=== PATIENT | male | born 1950 | race Caucasian/White ===

== ENCOUNTER 2017-03-24 03:00 | Inpatient (IN) | payer OTHER, MEDICARE ==
[~2017-03-24] VITALS: Ht 177.8 cm; Wt 111.2 kg
--- NOTE | ~2017-03-24 | HP ---
PATIENT'S NAME: SULMA SANCHEZ [facility] AGE: 66 Y [address] ROOM: [place] [address] LOCATION: [facility] ADMIT DATE: 03/24/2017 History & Physical DISCHARGE DATE: FAMILY PHYSICIAN: PHYSICIAN, UNKNOWN ATTENDING PHYSICIAN: MISAEL KING DATE OF SERVICE: CHIEF COMPLAINT: Shortness of breath. HISTORY OF PRESENT ILLNESS: This is a 66-year-old male who says that for the last 2 weeks he has been having this exertional dyspnea on exertion, which progressed to at rest with minimal exertion. He says that usually he is a physically active individual and he denies any recent long distance travel. He says that last few days, he also has been feeling a little bit of numbness in the left hand, but he also has had this before and he attributes this to his cervical spine problem and this is chronic, this is not new. He has had surgery before for this cervical spine in the past and he is planning to have a followup with medical provider in the future. Because of the worsening shortness of breath, the patient went to outside facility for evaluation. At outside facility, the patient was found to have elevated troponin, EKG with sinus tachycardia, and the patient was also tachycardic and requiring high amount of oxygen requirement on nonrebreather, and the patient was referred here for further care. Initially, they called our on-call tail puller, Dr. Sena, who suspected the patient might have pulmonary embolism; therefore, IV heparin bolus followed by drip were given and the patient was sent over here for further care. The patient remained hemodynamically stable throughout the transportation and also on arrival. The patient denies any chest pain, fever or chills, or any other symptoms. REVIEW OF SYSTEMS: As mentioned in the history of present illness. All other systems were reviewed and were negative except those mentioned in history of present illness. PAST MEDICAL HISTORY: 1. Hypertension. 2. Obstructive sleep apnea, on home CPAP. 3. Anxiety. 4. Ankylosing spondylitis. 5. Temporal arteritis, on steroids. 6. Migraine. 7. Asthma. PATIENT'S NAME: SULMA SANCHEZ [facility] AGE: 66 Y [address] ROOM: [place] [address] LOCATION: [facility] ADMIT DATE: 03/24/2017 History & Physical DISCHARGE DATE: FAMILY PHYSICIAN: PHYSICIAN, UNKNOWN ATTENDING PHYSICIAN: MISAEL KING ALLERGIES: LISINOPRIL, ANAPHYLAXIS. HOME MEDICATIONS: Currently, has been reconciled. SOCIAL HISTORY: The patient has a remote history of cigarette smoking. He quit in 1970. He smoked briefly about 1-2 cigarettes per week for only a few years. He is a social alcohol drinker, but he denies any alcohol abuse or alcohol withdrawal. He denies any IV illegal drug use. PAST SURGICAL HISTORY: 1. Cervical diskectomy with fusion in the past. 2. Melanoma removal in the back. 3. Temporal artery biopsy several times in the past. 4. Left hip replacement. 5. Cataract surgery. FAMILY HISTORY: Father had COPD from heavy alcohol use and mother had a heart problem, but does not remember the cause. PHYSICAL EXAMINATION: VITAL SIGNS: At the time of evaluation, temperature 98, heart rate was 120, respiration was 20, saturation was 93% on nonrebreather face mask at 10 L, and blood pressure was 112/76. GENERAL APPEARANCE: Alert and oriented x3. Currently, in mild respiratory distress from tachypnea. HEENT: Pupils are equally round and reactive to light. Extraocular muscles intact. Anicteric sclerae. Nasal turbinates normal bilaterally. Moist oral mucosa. NECK: No JVD. CARDIOVASCULAR: Tachycardia. No murmur, no rubs, no gallops. Regular rhythm. RESPIRATORY: Clear to auscultation. No rales, no rhonchi, no wheezing, no crackles. ABDOMEN: Obese, soft, nontender, nondistended, normal bowel sounds. No mass. EXTREMITIES: No edema in upper or lower extremities. NEUROLOGICAL: Grossly nonfocal. SKIN: No ulcer. LABORATORY DATA: Currently, our labs are pending. The ones already came back showed troponin PATIENT'S NAME: SULMA SANCHEZ [facility] AGE: 66 Y [address] ROOM: [id number] [place], [place] [address] LOCATION: [facility] ADMIT DATE: 03/24/2017 History & Physical DISCHARGE DATE: FAMILY PHYSICIAN: PHYSICIAN, UNKNOWN ATTENDING PHYSICIAN: MISAEL KING 1.08, proBNP 3340, CPK 110. INR 1.07, PTT 34, TSH 0.857, CK-MB 7.5. D-dimer 19.26. IMAGING STUDIES: EKG here performed on our hospital on admission showed a sinus rhythm. Regular heart rate with a finding of S1, Q3, T3. Chest x-ray was done from outside facility. Verbal report given to us was no acute finding. ASSESSMENT AND PLAN: 1. Regarding his acute hypoxemic respiratory failure: Probably, the patient has a pulmonary embolism. Given that he has a finding of MARISOL from an outside facility, CT angiogram of the chest cannot be done. I will consult Cardiology right now. Dr. Sena is seeing the patient right now. Further plan per Cardiology evaluation. We will continue IV heparin drip for now. Eventually, the patient will require ventilation and perfusion scanning. I will give him IV fluids for hydration right now. We will also get an echo stat looking for the right ventricular strain. Defer further care and evaluation per Cardiology. We will get an echo stat right now. Dr. Sena is seeing the patient right now with salvage engineering technician in the room. Further plan per Cardiology. We will also be getting a venous duplex ultrasound of the bilateral lower extremity looking for DVT. We will also do blood work including proBNP. 2. Regarding his acute kidney injury: We will check our kidney function here. Give him IV fluids for hydration. Put a O[place]no catheter for strict in's and out's. Get a urinalysis. 3. Regarding his transaminitis: His liver function testing from outside facility were high. I will check a complete abdominal ultrasound looking for liver pathology. N.p.o. for now. 4. Regarding his history of obstructive sleep apnea: The patient did not bring the CPAP from home. We will do oxygen on nonrebreather right now for the possibility of PE. Keep the saturation more than 90%. 5. Regarding his hypertension: Hold blood pressure medication for now to prevent hypotension in the setting of a possible pulmonary embolism. 6. Regarding his asthma: Currently, not in flare. We will check an RT for RSS. 7. Consider repeating a chest x-ray. If he has any abdominal or pulmonary sounds. 8. Further plan will depend on clinical course. Currently, Dr. Sena is seeing the patient, and further plan per Cardiology. Time spent in care on the day of admission is 50 minutes where 20 minutes was spent on chart review and the remainder of time was spent on interview and physical examination, also on counseling. The counseling includes going over PATIENT'S NAME: SULMA SANCHEZ [facility] AGE: 66 Y [address] ROOM: [place] [address] LOCATION: [facility] ADMIT DATE: 03/24/2017 History & Physical DISCHARGE DATE: FAMILY PHYSICIAN: PHYSICIAN, UNKNOWN ATTENDING PHYSICIAN: MISAEL KING the plan of care with the patient in detail and also answering all the questions and concerns the patient had to his satisfaction. Further plan will depend on clinical course. Further plan will also depend on Cardiology. MD MARQUEZ RAIN/amna /[id number] D: T: HISTORY & PHYSICAL
--- NOTE | ~2017-03-24 | CATH ---
Demographics Patient Name LAURA Coburn Gender Male Date of 1950 Age 66 year(s) Patient Number [id number] Date of Study 03/24/2017 Visit Number [id number] Room Number G[address] [place] [id number] Ht 177.8 cm Wt 112.3 kg Referring Geeta Patrick MD Primary Physician Physician Performing Efstratiou Secondary Physician Physician Joseph Ventura MD Diagnostic Efstratiou Assisting Physician Physician Joseph Ventura MD Interventional Efstratiou Physician Air Brush Decorator Physician Joseph Ventura MD Findings and Conclusions Procedure Description The patient was brought to the diagnostic cardiac catheterization-EP laboratory in the fasting, non-sedated state. Informed consent was obtained in the written and verbal form after the risks and benefits were explained. The patient had no further questions and agreed to proceed. The planned puncture-incision site(s) were shaved and prepped with ChloraPrep and draped in the usual sterile manner. Supplemental oxygen was delivered by a registered nurse under physician guidance. Surface ECG rhythm, blood pressure measurement, and pulse oximetry were monitored throughout the procedure. Venous access. The access site was infiltrated with lidocaine. The vessel was entered with the Seldinger technique. A sheath was advanced into the vessel and used for catheter placement. Right heart catheterization. A catheter was successfully advanced to the right atrium, right ventricle, pulmonary artery, and pulmonary artery wedge position under fluoroscopic guidance. Resting hemodynamics were obtained. The catheter was positioned in the pulmonary artery for TPA infusion. Venous hemostasis was achieved. The patient was transferred to a regular nursing floor via cart accompanied by a nurse. The patient left the laboratory in stable condition. Peripheral Procedure Description Peripheral infusion catheter placed in pulmonary artery. RIJ accessed under US guidance iPA 20mg to be infused over 15hrs for submassive PE with acute cor pulmonale Diagnostic Cath Status: Urgent Interventional Cath Status: Urgent Procedure Procedure Type Diagnostic procedure:Angiography:, RHC Peripheral vascular Intervention:Thrombolytics:, Inital Throbolytics Indications: Shortness of breath and Chest pain. The procedure was explained in detail to the patient. Risks, complications and alternative treatments were reviewed. Written consent was obtained. Medications Reviewed with Patient prior to Procedure. Procedure Data Procedure Date Date: 03/24/2017Start: 08:03 AMEnd: 08:40 AM Entry Locations - Antegrade Percutaneous access was performed through the Right Jugular vein (Primary location). A 6 Fr sheath was inserted. Hemostasis was successfully obtained using Suture. Closure Comments: Sutured in to place by Camron Feng Procedure Medications Order and Administration + + + + + !Time !Medication !Dosage !Route ! + + + + + !03/24/2017 08:18 AM !tPA (Alteplase) !1.35 mg/hr !I.C. ! + + + + + !03/24/2017 08:21 AM !0.9% NaCl !20 ml/hr !I.C. ! + + + + + !03/24/2017 08:28 AM !Heparin Drip ( 2500u/250ml) ! !I.V. drip ! + + + + + Devices Used - A6 Fr. MPA2 Diag. Catheter. Comments: Placed in pulmonary artery to infuse TPA.. Fluoroscopy Time: Diagnostic: 1:18 minutes. Total: 1:18 minutes. Fluoroscopy Dose: Diagnostic: 61 mGy. Total: 61 mGy. Estimated Blood Loss: 4 ml. Medical History Allergies - Other:(lisinopril alfalfa). Risk Factors The patient risk factors include:obesity, cerebrovascular disease, hypertension, chronic lung disease and former tobacco use. Admission Data Admission Date: 03/24/2017 Admission Time: 04:16 AM Admit Source: [facility] Insurance Payors: [facility]. Admission Medications + +------+------+ + + + + !Medication !Dosage!Times !Last !Last !Administered !Comments ! ! ! !Per !Delivery !Delivery ! ! ! ! ! !Day !Date !Time ! ! ! + +------+------+ + + + + !Aspirin ! ! ! ! ! ! ! !(any) ! ! ! ! ! ! ! + +------+------+ + + + + !Beta ! ! ! ! ! ! ! !Shabnam ! ! ! ! ! ! ! !(any) ! ! ! ! ! ! ! + +------+------+ + + + + Hemodynamics Condition: Rest O2 Consumption: Estimated: 294.13Heart Rate: 103 bpm Pressures (mmHg) +-----+ + !Site !Pressure ! +-----+ + !RA ! (15) ! +-----+ + !PA ! (41) ! +-----+ + !PA !72/ (42) ! +-----+ + Shunts Oxygen Values O2 Capacity 164.56 O2 Consumption 294.13 Signatures dtt: Andres Sena dtd: 03/24/1703 Physician Self Edit
--- NOTE | ~2017-03-24 | ENPV ---
Vascular Lower Extremities DVT Study Procedure Demographics Patient Name SULMA SANCHEZ Date of Study 03/24/2017 Patient Number [id number] Gender Male Date of 1950 Age 66 Visit Number [id number] Height 70 Weight 247.58 Number Referring Kattiou Richardayotis Interpreting Ike Zamudio MD Physician A MD Physician Physician Ordering Efstratiou Panayotis Cloth Covered Helmet Puller Physician A Dynamics Ax Developer Justus Tee [facility] Conclusions Summary There is sub-acute deep vein thrombosis from the right popliteal vein through the calf veins. No evidence of DVT in the left leg. Procedure Type of Study: Veins:Lower Extremities DVT Study, Venous Duplex Lower Extremity Bilateral. Indications for Study:Pulmonary embolism. Appropriate Use Criteria:9 Allergies - Other:(lisinopril alfalfa). Patient Status:STAT. Study Location:Inpatient Portable. Technical Quality:Adequate visualization. Risk Factors - The patient's risk factor(s) include: chronic lung disease, obesity and arterial hypertension. - The patient has a former tobacco history. Velocities are measured in cm/s ; Diameters are measured in cm Right Lower Extremities DVT Study Measurements Right 2D and Doppler Measurements + + + + +------+------+ + !Location !Visualized!Compressibility!Thrombosis!Signal!Reflux!Reflux ! ! ! ! ! ! ! !(sec) ! + + + + +------+------+ + !GSV Thigh !Yes !Yes !None ! ! ! ! + + + + +------+------+ + !Common !Yes !Yes !None ! ! ! ! !Femoral ! ! ! ! ! ! ! + + + + +------+------+ + !Prox !Yes !Yes !None ! ! ! ! !Femoral ! ! ! ! ! ! ! + + + + +------+------+ + !Dist !Yes !Yes !None ! ! ! ! !Femoral ! ! ! ! ! ! ! + + + + +------+------+ + !Popliteal !Yes !No !Sub-acute ! ! ! ! + + + + +------+------+ + !PTV !Yes !No !Sub-acute ! ! ! ! + + + + +------+------+ + !Peroneal !Yes !No !Sub-acute ! ! ! ! + + + + +------+------+ + Left Lower Extremities DVT Study Measurements Left 2D and Doppler Measurements + + + + +------+------+ + !Location !Visualized!Compressibility!Thrombosis!Signal!Reflux!Reflux ! ! ! ! ! ! ! !(sec) ! + + + + +------+------+ + !GSV Thigh !Yes !Yes !None !Phasic!No ! ! + + + + +------+------+ + !Common !Yes !Yes !None !Phasic!No ! ! !Femoral ! ! ! ! ! ! ! + + + + +------+------+ + !Prox !Yes !Yes !None !Phasic!No ! ! !Femoral ! ! ! ! ! ! ! + + + + +------+------+ + !Mid Femoral!Yes !Yes !None !Phasic!No ! ! + + + + +------+------+ + !Dist !Yes !Yes !None !Phasic!No ! ! !Femoral ! ! ! ! ! ! ! + + + + +------+------+ + !Popliteal !Yes !Yes !None !Phasic!No ! ! + + + + +------+------+ + !Gastroc !Yes !Yes !None !Phasic!No ! ! + + + + +------+------+ + !PTV !Yes !Yes !None !Phasic!No ! ! + + + + +------+------+ + !Peroneal !Yes !Yes !None !Phasic!No ! ! + + + + +------+------+ + Signature dtt: PRIETO MILLER: 03/24/17 0546 Physician Self Edit
--- NOTE | ~2017-03-24 | PUL ---
PATIENT'S NAME: SULMA SANCHEZ [facility] AGE: 66 Y [address] ROOM: [address] [address] LOCATION: [facility] ADMIT DATE: 03/24/2017 Pulmonary DISCHARGE DATE: 04/02/2017 FAMILY PHYSICIAN: Lucas Hines MD ATTENDING PHYSICIAN: Rasta Connor NAME OF PROCEDURE: Overnight Pulse Oximetry DATE OF PROCEDURE: March 31, 2017 REASON FOR EXAM: Nocturnal hypoxemia RESULTS: The test was performed on room air. The total recording time was 8 hours, 36 minutes, and 52 seconds, with a total valid sampling time of 8 hours, 36 minutes, and 48 seconds. The highest pulse noted was 99 beats per minute, the lowest pulse was 57 beats per minute, with mean pulse of 70 beats per minute. The highest SpO2 was 98%, lowest SpO2 was 75%, with a mean SpO2 of 89.2%. A total cumulative time with saturation was less than 88% was approximately 9 minutes. The desaturation event index was elevated at was 29.5. PHYSICIAN INTERPRETATION: The patient has evidence of significant nocturnal hypoxia and would qualify for supplemental oxygen as per Medicare criteria. Since the desaturation event index was elevated a sleep study would be recommended at this time. MD JASMINE NEWBY/fide /[id number] dtt: 04/06/17 1100 TUAN MEENAKSHI dtd: 04/04/17 1247
--- NOTE | ~2017-03-24 | ECHO ---
Transthoracic Echocardiography Report (TTE) Demographics Patient Name SULMA SANCHEZ Date of Study 03/24/2017 Patient Number [id number] Visit Number [id number] Date of 1950 Room Number G6215 Accession Number [id number] Gender Male Age 66 year(s) Referring Geeta Patrick MD Spiral Tube Winder Helper Justus Tee RVT Physician Physician Interpreting Nathen Ruiz Firer [place] Physician A Supervising Ordering Physician Nathen Ruiz MD/ALYSSA Ventura MD Nurse Stress Service Worker Helper Conclusions Summary Technically difficult exam. The estimated left ventricular ejection fraction is 50%. Mild to moderate concentric left ventricular hypertrophy. Diastolic function indeterminate due to patient's arrhythmia. Small left ventricular cavity. Flattened septum in end systole suggests RV pressure overload. Mildly reduced right ventricular function. Moderately dilated right ventricle. Positive Crawford sign. Mild tricuspid regurgitation by color Doppler. There is severe pulmonary hypertension. The pulmonary pressure (RVSP) is 61 mmHg. Procedure Type of Study TTE procedure:2D Echocardiogram. Procedure Date Date: 03/24/2017 Start: 05:00 AM Study Location: Inpatient Portable Technical Quality: Limited visualization due to poor acoustical window. Indications:Pulmonary embolus. Appropriate Use Criteria: 9 Patient Status: STAT HR: 104 bpm BP: 111/88 mmHg Allergies - Other:(lisinopril alfalfa). M-Mode/2D Measurements LV Diastolic Dimension: 3.56 cm LV Systolic Dimension: 2.52 cm LV Septum Diastolic: 1.71 cm LV PW Diastolic: 1.44 cm AO Root Dimension: 2.5 cm LA Dimension: 2.77 cm RV Diastolic Dimension: 2.99 cm LVOT: 2 cm RV Base: 3.17 cm RV Mid: 3.13 cm RV Length: 6.2 cm TAPSE: 0.84 cm TDI-S': 7 cm/s Doppler Measurements AV Peak Velocity: 1.34 m/s MV Peak E-Wave: 0.55 m/s AV Peak Gradient: 7.18 mmHg AV Mean Gradient: 3 mmHg MV P1/2t: 34 msec TR Gradient:45.7 mmHg PV Peak Velocity: 0.59 m/s Estimated RAP:15 mmHg PV Peak Gradient: 1.38 mmHg Estimated RVSP: 61 mmHg Estimated PASP: 60.7 mmHg E' Septal Velocity: 0.05 m/s A' Septal Velocity: 0.09 m/s E' Lateral Velocity: 0.06 m/s A' Lateral Velocity: 0.08 m/s Findings Left Ventricle Mild to moderate concentric left ventricular hypertrophy. Diastolic function indeterminate due to patient's arrhythmia. Small left ventricular cavity. Flattened septum in end systole suggests RV pressure overload. Right Ventricle Mildly reduced right ventricular function. Moderately dilated right ventricle. Positive Crawford sign. Left Atrium Normal left atrial size. Right Atrium The right atrium is moderately dilated. IVC measures 1.85 cm with no inspiratory collapse. Mitral Valve The mitral valve is not well imaged. No mitral regurgitation by color Doppler. Aortic Valve The aortic valve was not well imaged. The aortic valve is mildly sclerotic. Tricuspid Valve Mild tricuspid regurgitation by color Doppler. There is severe pulmonary hypertension. The pulmonary pressure (RVSP) is 61 mmHg. Pulmonic Valve The pulmonic valve is not well visualized. Pericardial Effusion No evidence of pericardial effusion. Miscellaneous Visualized portions of the aortic root and ascending aorta appear normal in size. Pleural Effusion No evidence of pleural effusion. Contractility Score LV regional wall motion:(0-Non visualized 1-Normal 2-Hypokinesis 3-Akinesis 4-Dyskinesis 5-Aneurysm) Signature dtt: Andres Sena dtd: 03/24/17 5235 Physician Self Edit
--- NOTE | ~2017-03-24 | ECHO ---
Transthoracic Echocardiography Report (TTE) Demographics Patient Name SULMA SANCHEZ Date of Study 03/25/2017 Patient Number [id number] Visit Number [id number] Date of 1950 Room Number G6215 Accession Number [id number] Gender Male Age 66 year(s) Referring Geeta Patrick MD Pattern Cutter Lacy Bates RVT, Physician RDCS Physician Interpreting Nathen Ruiz Solar Sales Ambassador Physician A Supervising Ordering Physician Geeta Patrick MD, MD/MLP Nurse Stress Budget Examiner Conclusions Summary Pre-pericardiocentesis There is evidence of cardiac tamponade. Global moderate sized pericardial effusion present. Post pericardiocentesis results in no evidence of a pericardial effusion at this time. Procedure Type of Study TTE procedure:2D Echocardiogram. Procedure Date Date: 03/25/2017 Start: 07:16 AM Study Location: Inpatient Portable Technical Quality: Adequate visualization Indications:Shortness of breath and Tachycardia. Appropriate Use Criteria: 8 Patient Status: STAT HR: 138 bpm BP: 140/105 mmHg Allergies - Other:(lisinopril alfalfa). Signature dtt: Andres Sena dtd: 03/25/17 0716 Physician Self Edit
--- NOTE | ~2017-03-24 | CON ---
PATIENT'S NAME: SULMA SANCHEZ [facility] AGE: 66 Y [address] ROOM: [place] [address] LOCATION: [facility] ADMIT DATE: 03/24/2017 Consultation DISCHARGE DATE: FAMILY PHYSICIAN: PHYSICIAN, UNKNOWN ATTENDING PHYSICIAN: MISAEL KING DATE OF CONSULTATION: 03/24/2017 HISTORY OF PRESENT ILLNESS: This is a 66-year-old man who presented to the clinic in [place] complaining of about 10 days of progressive shortness of breath to the point that it became unbearable. The patient says that during that time he had to travel back and forth to the [facility] in [place] following his recent cataract surgery and thought that he would address his breathing problems afterwards. Travel was done by train and the travel time is about [address]. Prior to this episode, the patient had no diagnosed coronary artery disease or thromboembolic disease. He has chronic temporal arteritis and remains on prednisone. He has hypertension, obesity, history of migraine. Also, when he first presented to the emergency room, complained of numbness of his left upper extremity. SOCIAL HISTORY: He worked for many years in [place] for [employer]. He served three years in the during the [place] war. 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 He smoked very little and quit completely in 1970. Social alcohol use. FAMILY HISTORY: His father from emphysema and his mother from an unknown heart condition. A brother from a heart condition and another brother from AIDS. MEDICATIONS: 1. Metoprolol tartrate 50 mg twice a day. 2. Aspirin 81 mg daily. 3. Cascara [place] 450 mg three tablets daily. 4. CPAP at night. 5. Alprazolam 0.25 mg t.i.d. p.r.n. anxiety. 6. Prednisone on a tapered dose. PAST SURGICAL HISTORY: Left hip replacement, cataract surgery bilateral, removal of melanoma of the back, and several temporal artery biopsies. PAST MEDICAL HISTORY: Also includes psoriasis. PATIENT'S NAME: SULMA SANCHEZ [facility] AGE: 66 Y [address] ROOM: [address] [address] LOCATION: [facility] ADMIT DATE: 03/24/2017 Consultation DISCHARGE DATE: FAMILY PHYSICIAN: PHYSICIAN, UNKNOWN ATTENDING PHYSICIAN: MISAEL KING ALLERGIES: HE REPORTS ANAPHYLAXIS FROM LISINOPRIL. IN OUR DISCUSSION WITH DR. AR[place]YO [place], WE WERE BOTH VERY CONCERNED ABOUT PULMONARY EMBOLISM WITH THE PRESENTATION. THE D-DIMER WAS ELEVATED BEYOND THE MEASUREMENT RANGE OF THE LOCAL LABORATORY. IT WOULD NOT BE SAFE TO OBTAIN A CT ANGIOGRAM OF THE CHEST BECAUSE THE PATIENT PRESENTED WITH CREATININE OF 2.0, SO I DECIDED TO ANTICOAGULATE HIM AND TRANSPORT HIM BY AIR. THE PATIENT REQUIRED INCREASED AMOUNT OF OXYGEN THROUGH A NON-REBREATHER MASK AND HE WAS TACHYCARDIC IN THE 130S. UPON ARRIVAL I EVALUATED THE PATIENT, AND OF COURSE HE WAS STARTED ON INTRAVENOUS HEPARIN. PHYSICAL EXAMINATION: GENERAL: Upon arrival, I evaluated the patient in the Intensive Care Unit, was very anxious, tachypneic. VITAL SIGNS: Pulse was 106, blood pressure 111/88, but only vitals were recorded about 3 hours after arrival. NECK: It was not easy to evaluate neck veins. HEART: Distant, regular tachycardia. LUNGS: Decreased breathing sounds. ABDOMEN: Obese. EXTREMITIES: Lower extremities mild edema. IMAGING DATA: We obtained a stat echocardiogram that showed dilated hypokinetic right ventricle with positive Crawford sign. The left ventricle appears normal. We then did venous scanning of his lower extremities that showed deep vein thrombosis in the right lower extremity. Based on this information, I can confidently say that the patient has a submassive acute pulmonary embolism. His troponin is 1.08. ProBNP 3340. D-dimer measured here 19.26. Based on this, we will proceed with catheter based thrombolysis. Risks, events, alternatives were explained and the patient is willing to proceed. Thank you for allowing me to participate in the care of your patient. NEFTALY ENRIQUEZ MD PE/amna /[id number] d: 03/26/173 t: 03/28/17 1720, CONSULTATION REPORT
--- NOTE | ~2017-03-24 | ECHO ---
Transthoracic Echocardiography Report (TTE) Demographics Patient Name SULMA SANCHEZ Date of Study 03/27/2017 Patient Number [id number] Visit Number [id number] Date of 1950 Room Number G6215 Gender Male Number Age 66 year(s) Referring Nathen Ruiz Engine Hostler Justus Tee RVT Physician A MD Geeta Patrick MD Physician Interpreting Nathen Director Of Planning Physician Joseph Ventura MD Supervising Ordering Nathen RAZO/MLP Physician Joseph Ventura MD Nurse Stress Weight Control Engineer Conclusions Summary Possible trivial global pericardial effusion. The estimated left ventricular ejection fraction is 70-75%. Severely dilated right ventricle. Mild to moderately reduced right ventricular function. Procedure Type of Study TTE procedure:Echo Limited w/o Contrast. Procedure Date Date: 03/27/2017 Start: 08:14 AM Study Location: Inpatient Portable Technical Quality: Adequate visualization Additional Indications:Post pericardiocentes Appropriate Use Criteria: 9 Patient Status: Routine HR: 121 bpm BP: 135/77 mmHg Allergies - Other:(lisinopril alfalfa). Findings Right Ventricle Severely dilated right ventricle. Mild to moderately reduced right ventricular function. Pericardial Effusion Possible trivial global pericardial effusion. Contractility Score LV regional wall motion:(0-Non visualized 1-Normal 2-Hypokinesis 3-Akinesis 4-Dyskinesis 5-Aneurysm) Signature dtt: Andres Sena: 03/27/17 0814 Physician Self Edit
--- NOTE | ~2017-03-24 | CATH ---
Cardiac Diagnostic Report Demographics Patient Name LAURA Coburn Gender Male Date of 1950 Age 66 year(s) Patient Number [id number] Date of Study 03/25/2017 Visit Number [id number] Room Number G6215 [place] [id number] Ht 177.8 cm Wt 112.3 kg Referring Geeta Patrick MD Primary Physician Physician Performing Efstratiou Secondary Physician Physician Joseph Ventura MD Diagnostic Efstratiou Assisting Physician Physician Joseph Ventura MD Interventional Physician Mortgage Underwriter Physician Findings and Conclusions Diagnostic Findings and Conclusion Pericardiocentesis with 220 ml dark, sanguinous fluid removed. Diagnostic Recommendations [place] drainage bag. Routine post-pericardiocentesis care. Procedure Description The patient was brought to the diagnostic cardiac catheterization-EP laboratory in the fasting, non-sedated state. Informed consent was obtained in the written and verbal form after the risks and benefits were explained. The patient had no further questions and agreed to proceed. The planned puncture-incision site(s) were shaved and prepped with ChloraPrep and draped in the usual sterile manner. Pain control medications were delivered by a registered nurse under physician guidance. Surface ECG rhythm, blood pressure measurement, and pulse oximetry were monitored throughout the procedure. Pericardiocentesis. A long, thin-walled needle was advanced with fluoroscopic monitoring, from the subxiphoid approach, until fluid was aspirated from the pericardial space. At the conclusion of the procedure, the pericardial catheter was sutured in place and attached to a specimen bag under gravity drainage. A sterile dressing was applied. The patient was transferred to a regular nursing floor via cart accompanied by a nurse. The patient left the laboratory in stable condition. Diagnostic Cath Status: Urgent Procedure Procedure Type Diagnostic procedure:Misc:, Periocardiocentesis Procedure Data Procedure Date Date: 03/25/2017Start: 08:32 AMEnd: 09:01 AM Procedure Medications Order and Administration + + +-------+------+ !Time !Medication !Dosage !Route ! + + +-------+------+ !03/25/2017 08:41 AM !Fentanyl !25 mcg !I.V. ! + + +-------+------+ Fluoroscopy Time: Diagnostic: 1:30 minutes. Total: 1:30 minutes. Fluoroscopy Dose: Diagnostic: 73 mGy. Total: 73 mGy. Medical History Allergies - Other:(lisinopril alfalfa). Risk Factors The patient risk factors include:obesity, cerebrovascular disease, hypertension, chronic lung disease and former tobacco use. Admission Data Admission Date: 03/24/2017 Admission Time: 04:16 AM Admit Source: [facility] facility Insurance Payors: [facility]. Admission Medications + +------+------+ + + + + !Medication !Dosage!Times !Last !Last !Administered !Comments ! ! ! !Per !Delivery !Delivery ! ! ! ! ! !Day !Date !Time ! ! ! + +------+------+ + + + + !Aspirin ! ! ! ! ! ! ! !(any) ! ! ! ! ! ! ! + +------+------+ + + + + !Beta ! ! ! ! ! ! ! !Shabnam ! ! ! ! ! ! ! !(any) ! ! ! ! ! ! ! + +------+------+ + + + + Hemodynamics Condition: Rest O2 Consumption: Estimated: 306.86 Shunts Oxygen Values O2 Capacity 175.44 O2 Consumption 306.86 Signatures dtt: Andres Sena dtd: 03/25/17 0832 Physician Self Edit
--- NOTE | ~2017-03-24 | DS ---
PATIENT'S NAME: SULMA SANCHEZ [facility] AGE: 66 Y [address] ROOM: [address] [address] LOCATION: [facility]U ADMIT DATE: 03/24/2017 Discharge Summary DISCHARGE DATE: 04/02/2017 FAMILY PHYSICIAN: Lucas Hines MD ATTENDING PHYSICIAN: Rasta Connor FINAL DIAGNOSES: 1. Acute on chronic hypoxic respiratory failure. 2. Submassive pulmonary embolism. 3. Pericardial tamponade. 4. Right lower lobe pneumonia. 5. Chronic hypoxic respiratory failure/obstructive sleep apnea. 6. Chronic obstructive pulmonary disease. 7. Acute diastolic congestive heart failure. 8. Essential hypertension. 9. Steroid-induced hypoglycemia. 10. Hypokalemia. 11. Hypomagnesemia. 12. Acute metabolic acidosis. 13. Acute blood loss anemia. 14. Acute kidney injury on stage 3 chronic kidney disease. 15. Acute encephalopathy. PROCEDURES: 1. Intrapulmonary artery tPA administration on March [address] Sena. 2. Pericardiocentesis March [address] Sena. For details of admission, please see the history and physical dictated by Dr. Connor for details. In short, the patient had presented with increasing shortness of breath to an outside facility. He was found to have acute hypoxic respiratory failure. The patient was transferred from an outside facility because there was concern about pulmonary embolism and it could not be diagnosed at that facility. LABORATORY DATA: ABGs on admission pH 7.21, pCO2 of 32, PO2 of 96% on 15 L. His lactate was 7.7. Sodium on admission was 144, got as high as 149, at discharge is 143. Potassium on admission was 4.7, got as low as 3.2 on March 31, at discharge was 3.7. Chloride on admission was 114, discharge 105. CO2 on admission was 20, got as low as 18 on the , at discharge it was 31. BUN on admission was 26, got as high as 28, and that is what was at discharge. Creatinine on admission was 1.7, got as high as 2, as well as prior to discharge was 1.5. On admission, his alkaline phosphatase was 46, AST 180, ALT 323. These did trend down into more normal range. His AST prior to discharge was 57, ALT was 119. Procalcitonin on admission was 0.2. PATIENT'S NAME: SULMA SANCHEZ [facility] AGE: 66 Y [address] ROOM: [id number] [place], [place] [address] LOCATION: [facility]PCU ADMIT DATE: 03/24/2017 Discharge Summary DISCHARGE DATE: 04/02/2017 FAMILY PHYSICIAN: Lucas Hines MD ATTENDING PHYSICIAN: Rasta Connor Urinalysis on admission did not show any evidence of infection. MICROBIOLOGY DATA: Blood sputum and urine cultures were negative. RADIOLOGY STUDIES: On admission, an ultrasound of the abdomen done because of distention showed numerous gallstones in the gallbladder, but he did not have any gallbladder wall thickening or any pericholecystic fluid. His biliary tree was normal. V/Q scan done for probable PE showed severely decreased perfusion throughout the left lung is a high probability for pulmonary embolism. CT scan of the head done on the because of headache, did not show any acute changes. CT scan of the chest done on the showed a right lower lobe consolidation, mild cardiomegaly. CT scan of the head done on the , done for acute encephalopathy, did not show any average of hemorrhage. Cardiovascular Studies: Echocardiogram done on admission showed that his EF was 50%. He had diastolic dysfunction and left ventricular hypertrophy. He had a moderately dilated right ventricle and severe pulmonary hypertension. Venous Dopplers done on admission showed a subacute DVT in the right popliteal vein. Echocardiogram done on the did show that there was a moderate size pericardial effusion. Serial echocardiograms were done the most. The last one done on the , did continue to show the dilated right ventricle and mildly reduced right ventricular function. HOSPITAL COURSE: The patient was admitted into the intensive care unit with a diagnosis of acute hypoxic respiratory failure. There were significant concerns for PE. He was empirically started on IV heparin drip. Cardiac enzymes were obtained. Dr. Sena did see him on cardiac evaluation. Dr. Connor did admit the patient. He did complete an ultrasound because of elevated liver enzymes and distention. The patient was put on subcutaneous insulin because his blood sugars were elevated. Based on the laboratory study results, the patient was taken to the laborer poultry hatchery and he was given intrapulmonary artery tPA. The patient was admitted back into the intensive care unit for close monitoring. He was noted to be anemic. He was given a transfusion of blood on the 3rd. His lactate was noted to be elevated. He was hypotensive. He required Levophed and did require aggressive IV transfusion. His picture was very consistent with that of pericardial tamponade. An echocardiogram was done and did in fact show that he did have pericardial tamponade. He was taken back to the lab and had an emergent pericardiocentesis with a drain placement. The patient had significant encephalopathy upon return to the ICU. CT scan did also show that he had a right lower lobe pneumonia. It was felt that this was aspiration pneumonia and he was started on IV antibiotics. He remained in the intensive care unit. We did get blood and sputum cultures. He did require BiPAP. He did also have significant bleeding around his sheath in his neck and this did eventually need to be pulled. The patient was on oral steroids. The decision was made to give him stress dose of steroids. He PATIENT'S NAME: SULMA SANCHEZ [facility] AGE: 66 Y [address] ROOM: [place] [address] LOCATION: [facility]PCU ADMIT DATE: 03/24/2017 Discharge Summary DISCHARGE DATE: 04/02/2017 FAMILY PHYSICIAN: Lucas Hines MD ATTENDING PHYSICIAN: Rasta Connor was tachycardiac and his pressures were starting to come up. He was started back on his Lopressor with parameters. He was started on Florastor for DVT prophylaxis. A ProGlide midline catheter was placed. He did receive diuretics. He remained hemodynamically stable. His hemoglobins remained stable. The decision was made to put him on Eliquis and stop the heparin drip. He was also taken off the Zosyn and put on Augmentin. His mental status had cleared significantly. He was put back on his stress doses of steroids. He did have an episode on the night of the , where he was very combative. He received a 50 mg dose of Seroquel and was unresponsive the next day at the time of dictation. A CT scan was done to rule out a bleed, but it was felt it was secondary to the Seroquel. The patient did wake up and then was cognitively appropriate. It was felt that he did have significant volume overload. He was given Lasix and diuresed very nicely. We continued to work on adjusting his blood pressure medications and blood sugar control. He did become hypokalemic from the diuretics. This was replaced. He was placed on a Dulera inhaler because of an ongoing cough. It was felt that he was stable for discharge and discharged to home on April 02. He is to have a low sugar diet and no activity restrictions. He is to be seen at the [facility] in [place] on April 03, and will try and get him his medications. He was sent with a 3-day supply of medications from the [facility]. These included Augmentin 875 mg twice daily, which will stop on the ; Eliquis 10 mg twice daily, which will stop on the at which time he will start 5 mg twice daily to take for 6 months; Aspirin 81 mg daily; Lasix 20 mg daily; Cozaar 100 mg daily; magnesium oxide 400 mg twice daily; Lopressor 50 mg twice daily; Prednisone 10 mg daily until April 25 at which time we will start 5 mg daily; albuterol inhaled twice daily. I did also write for a nebulizer that he will get at the [facility]. Cascara 1350 mg daily, Dulera 2 puffs twice daily, Tylenol 650 mg every 4 hours as needed for pain, Chloraseptic spray as needed for sore throat, CPAP which he will need to use at home. He was advised to stop the Xanax completely. He was also advised to get Align probiotic over the counter to take while he is on the Augmentin for 7 days after stopping the Augmentin. He was also encouraged to eat yogurt. DARIO DUMONT MD LAW/modl /[id number] CC: Lucas Hines MD PATIENT'S NAME: SULMA SANCHEZ [facility] AGE: 66 Y [address] ROOM: [id number] [place], [place] [address] LOCATION: GPCU ADMIT DATE: 03/24/2017 Discharge Summary DISCHARGE DATE: 04/02/2017 FAMILY PHYSICIAN: Lucas Hines MD ATTENDING PHYSICIAN: Rasta Connor d: t: 04/04/17 1245, DISCHARGE SUMMARY
--- NOTE | ~2017-03-24 | ECHO ---
Transthoracic Echocardiography Report (TTE) Demographics Patient Name SULMA SANCHEZ Date of Study 03/26/2017 Patient Number [id number] Visit Number [id number] Date of 1950 Room Number G6215 Accession Number [id number] Gender Male Age 66 year(s) Referring Geeta Patrick MD Charging Operator Lacy Bates RVT, Physician RDCS Physician Interpreting Nathen Ruiz Construction Recruiter Physician A Supervising Ordering Physician Nathen Ruiz MD/ALYSSA Ventura MD Nurse Stress [employer] Travel Counselor Conclusions Summary Limited echo for follow up pericardiocentesis. There is no evidence of a pericardial effusion. Hyperdynamic LV systolic performance. Small left ventricular cavity. Estimated EF: 75 %. Moderately reduced right ventricular function. IVC is moderately dilated. Blunted response to sniffing. Procedure Type of Study TTE procedure:2D Echocardiogram, Echo Limited w/o Contrast. Procedure Date Date: 03/26/2017 Start: 07:12 AM Study Location: Inpatient Portable Technical Quality: Adequate visualization Indications:Follow up post pericardiocentesis. Appropriate Use Criteria: 8 Patient Status: Routine Rhythm: NSR HR: 97 bpm BP: 107/67 mmHg Allergies - Other:(lisinopril alfalfa). Findings Left Ventricle Hyperdynamic LV systolic performance. Small left ventricular cavity. Estimated EF: 75 %. Right Ventricle Moderately reduced right ventricular function. Pericardial Effusion No evidence of pericardial effusion. Epicardial fat pad noted. Miscellaneous IVC is moderately dilated. Blunted response to sniffing. Signature dtt: Andres Sena dtd: 03/26/17 0712 Physician Self Edit
[~2017-03-24 03:00] MED LIST: "\\\"PREP SPRAY\\\"-TIN4 OZ"; ASPIRIN EC81 MG PO; BENADRYL50 MG PO; CASCARA SAGRADA PO; CEPACOL SORE T1 EAC1 PO/SUBLING; CPAP INH; DELTASONE5 MG PO; HYDROCODON-ACE1 EAC6 PO; LASIX20 MG PO; LOPRESSOR50 MG PO; MEDROL4 MG; NAPROSYN500 MG PO; PROAIR RESPICL90 MCG INH; SYMBICORT 160/41 KIT INH; TYLENOL EXTRA500 MG PO; XANAX0.25 MG PO
[2017-03-24 05:34] LABS: INR - (THERAPEUTIC) 1.07 (0.92-1.07); PROTIME 11.2 SECONDS (9.8-11.4)
--- NOTE | 2017-03-24 07:53 | NUR ---
Significant Event: ADMIT FROM [place] FOR SUSPECTED PE. PRESENTED WITH LEFT ARM NUMBNESS WITH INCREASED SOB AND CHEST PAIN. HEPARIN BOLUS AND GTT GIVEN. TRANSFER VIA FIXED WING TO [facility]. PT ALERT, TALKATIVE. DENIES NUMBNESS/TINGLING. MOVES ALL EXTREMITIES SPONTANEOUSLY. DENIES CHEST PAIN. ON NONREBREATHER WITH SPO2 93%. PIV X2. HEPARIN GTT CONTINUED. ECHO DONE AT BEDSIDE. Follow up: LOCALIZED TPA PER DR Morris
[2017-03-24 08:00] LABS: ALBUMIN 3.2 gm/dL (3.5-5.0); ANION GAP 14.7 (10.0-19.0); CALCIUM 8.1 mg/dL (8.5-10.5); CREATININE 1.7 mg/dL (0.6-1.3); POTASSIUM 4.7 mMol/L (3.7-5.1); TOTAL BILIRUBIN 0.5 mg/dL (0.0-1.5); TOTAL PROTEIN 6.8 g/dL (6.0-8.4)
[2017-03-24 08:23] LABS: BASOPHIL # 0.1 K/uL (0.0-0.2); BASOPHIL % 0.8 %; EOSINOPHIL # 0.1 K/uL (0.0-0.5); EOSINOPHIL % 0.7 %; HEMATOCRIT 46.9 % (37.0-53.0); HEMOGLOBIN 15.8 g/dL (11.0-16.0); IMMATURE GRANULOCYTE # 0.2 K/uL (0.0-0.3); IMMATURE GRANULOCYTE % 2.1 %; LYMPHOCYTE # 2.1 K/uL (0.8-4.0); LYMPHOCYTE % 17.9 %; MCH 33.1 pg (27.0-34.0); MCHC 33.7 gm/dL (32.0-36.5); MCV 98.1 fl (83.0-98.0); MONOCYTE # 1.2 K/uL (0.0-1.0); MONOCYTE % 10.2 %; MPV 10.9 fl (9.4-12.4); NEUTROPHIL # (ANC) 7.8 K/uL (1.4-9.0); NEUTROPHIL % 68.3 %; NRBC % 0 /100WBC (0-0.00); PLATELET COUNT 148 K/uL (150-450); RBC 4.78 M/uL (3.50-5.50); RDW-CV 12.9 % (11.9-14.6); WBC 11.5 K/uL (4.0-11.0)
[2017-03-24 11:11] LABS: INR - (THERAPEUTIC) 1.04 (0.92-1.07); PROTIME 10.9 SECONDS (9.8-11.4)
--- NOTE | 2017-03-24 13:46 | NUR ---
Significant Event:WENT DOWN FOR R) IJ PLACEMENT WITH TPA ADMINISTRATION. AT 0742. TPA STARTED AT 0818. HAD VQ SCAN TODAY. ABDOMINAL US. PT IS AAOX3. NO C/O NUMBNESS, TINGLING, DOUBLE OR BLURRED VISION. NO DAVIDSON. HR 90-LOW 100'S. ON 15L NONREBREATHER. CLEAR AND DIMINISHED LUNG SOUNDS. BS ACTIVE. PIV X2. CARDIAC DIET. Follow up:
[2017-03-24] MEDS ORDERED: DELTASONE5 MG PO (18:05)
[2017-03-24 20:59] LABS: BILIRUBIN URINE NEGATIVE (NEGATIVE); BLOOD URINE 250 /UL (NEGATIVE); COLOR URINE YELLOW (YELLOW); GLUCOSE URINE NEGATIVE (NEGATIVE); KETONE URINE NEGATIVE (NEGATIVE); LEUKOCYTES URINE NEGATIVE /UL (NEGATIVE); NITRITE URINE NEGATIVE (NEGATIVE); PROTEIN URINE 100 mg/dL (NEGATIVE); SPEC GRAVITY URINE 1.015 (1.003-1.035); TURBIDITY URINE CLEAR (CLEAR); UROBILINOGEN URINE NORMAL (NORMAL)
[2017-03-24 21:08] LABS: WBC URINE 0-2 #/HPF (NEGATIVE)
[2017-03-24 21:09] LABS: BACTERIA URINE FEW (NEGATIVE); EPITHELIAL URINE NEGATIVE #/HPF (NEGATIVE); HYALINE CAST URINE 0-2 #/LPF (NEGATIVE); MUCUS URINE 1+ (NEGATIVE)
--- NOTE | 2017-03-24 21:30 | NUR ---
ATTEMPTED TO MEASURE PULMONARY ARTERY LINE. NO MARKINGS TO GAIN ACCURATE MEASUREMENT. VERIFIED CATHETER WAS LOCKED WITH MYSELF AND ESL INSTRUCTOR.
[2017-03-24 23:27] LABS: INR - (THERAPEUTIC) 1.14 (0.92-1.07)
[2017-03-25 01:08] LABS: BASOPHIL # 0.1 K/uL (0.0-0.2); BASOPHIL % 0.5 %; EOSINOPHIL # 0.3 K/uL (0.0-0.5); HEMATOCRIT 41.2 % (37.0-53.0); HEMOGLOBIN 13.5 g/dL (11.0-16.0); IMMATURE GRANULOCYTE # 0.2 K/uL (0.0-0.3); IMMATURE GRANULOCYTE % 1.7 %; LYMPHOCYTE # 1.8 K/uL (0.8-4.0); LYMPHOCYTE % 15.8 %; MCHC 32.8 gm/dL (32.0-36.5); MCV 100.7 fl (83.0-98.0); MONOCYTE # 0.9 K/uL (0.0-1.0); MPV 10.3 fl (9.4-12.4); NEUTROPHIL # (ANC) 7.9 K/uL (1.4-9.0); NRBC % 0 /100WBC (0-0.00); PLATELET COUNT 100 K/uL (150-450); RBC 4.09 M/uL (3.50-5.50); RDW-CV 12.8 % (11.9-14.6); WBC 11.2 K/uL (4.0-11.0)
[2017-03-25 01:20] LABS: ANION GAP 11.4 (10.0-19.0); CALCIUM 7.7 mg/dL (8.5-10.5); CREATININE 1.5 mg/dL (0.6-1.3); POTASSIUM 4.4 mMol/L (3.7-5.1)
[2017-03-25 04:24] LABS: HEMATOCRIT 38.8 % (37.0-53.0); HEMOGLOBIN 12.7 g/dL (11.0-16.0); MCH 32.7 pg (27.0-34.0); MCHC 32.7 gm/dL (32.0-36.5); MPV 10.6 fl (9.4-12.4); RBC 3.88 M/uL (3.50-5.50); RDW-CV 12.9 % (11.9-14.6); WBC 11.7 K/uL (4.0-11.0)
--- NOTE | 2017-03-25 05:09 | NUR ---
Significant Event: Patient is alert and oriented x3. HR 90s-100s, SBP 120s-160s. TPA completed at 2300. Heparin protocol started with heparin at 1000 units/hr. Significant oozing from R) IJ line. Manual pressure applied. Head and chest CT done to rule out bleeding. O2 sats 93-96% on 8L simple mask. Lung sounds diminshed in bases. No BM. Adequate UOP, voids with urinal. Bedrest. Follow up: Apply manual pressure R) IJ central line site until clotted, next PTTHP/CBC at 0700
[2017-03-25 06:37] LABS: HEMATOCRIT 39.8 % (37.0-53.0); HEMOGLOBIN 12.9 g/dL (11.0-16.0); MCH 32.4 pg (27.0-34.0); MCHC 32.4 gm/dL (32.0-36.5); MPV 10.5 fl (9.4-12.4); RBC 3.98 M/uL (3.50-5.50); RDW-CV 12.8 % (11.9-14.6)
[2017-03-25 06:38] LABS: WBC 19.4 K/uL (4.0-11.0)
[2017-03-25 06:46] LABS: INR - (THERAPEUTIC) 1.16 (0.92-1.07); PROTIME 12.2 SECONDS (9.8-11.4)
[2017-03-25 07:29] LABS: BICARBONATE 12.8 mmol/L (18.0-23.0); PCO2 32 mmHg (35-45); PO2 96 mmHg (80-90)
[2017-03-25 07:32] LABS: LACTATE 7.7 mEq/L (0.50-1.60)
[2017-03-25 07:50] LABS: POTASSIUM 4.5 mMol/L (3.7-5.1)
[2017-03-25 07:51] LABS: ANION GAP 19.5 (10.0-19.0); CALCIUM 6.9 mg/dL (8.5-10.5)
[2017-03-25 08:18] LABS: BICARBONATE 12.9 mmol/L (18.0-23.0); PCO2 33 mmHg (35-45)
[2017-03-25 08:20] LABS: PO2 137 mmHg (80-90)
[2017-03-25 11:24] LABS: PCO2 36 mmHg (35-45)
[2017-03-25 11:30] LABS: BICARBONATE 18.5 mmol/L (18.0-23.0); PO2 74 mmHg (80-90)
--- NOTE | 2017-03-25 15:49 | NUR ---
SIGNIFICANT EVENT: PATIENT TO TIPPLE SUPERVISOR THIS AM [id number] FOR A PERCARDIOCENTESIS. PATIENT ALERT, ORIENTED X3. OPENS EYES SPONT AND TO VOICE. PUPILS EQUAL AND REACTIVE. PATIENT MOVES ALL 4 EXTREMITIES SPONT AND TO COMMANDS. EQUAL STRENGTH THROUGHOUT. PATIENT RESTLESS/ AGITATED AT TIMES. FENTANYL IV GIVEN FOR DISCOMFORT. PAITENT DENIES NUMBNESS/ TINGLING. PATIENT HAS BEEN IN SINUS RHYTHM, TACHY AT TIMES. HR 90-110S. PULSES PALPABLE THROUGHOUT, THREADY IN LOWER EXTREMITIES- ALSO DOPPLERED TO VERIFY. BP STABLE, SBP 110-130S, MAP>65. LEVOPHED WEANED TO 0.02 MCG/KG/MIN, WILL CONT TO WEAN TO OFF TO KEEP SBP>90 AND MAP >65. BOBY DRIP WEANED TO OFF. MAX TEMP OF 100.2 THIS SHIFT. BLOOD CULTURES X2 COLLECTED. R) ART LINE FEMORAL PLACED. SOME EDEMA PRESENT. PATIENT HAS BEEN ON 5L NC TO 70& FIO2 ON BIPAP. CURRENTLY PATIENT IS ON 40% FIO2 VIA BIPAP 05/02 TO KEEP SATS >94%. TACHYPNIC AT TIMES. BOWEL SOUNDS PRESENT, NO BM TODAY. FEW SIPS OF WATER THROUGHOUT THE SHIFT. GRIMALDO STARTED THIS SHIFT, [place] URINE OUTPUT. PATIENT REPOSITIONED EVERY 1-2 HOURS. BATH COMPLETED THIS SHIFT. NO NEW SKIN ISSUES NOTED. PERICARDIAL DRAIN INTACT, 400 ML OUTPUT, DRAINAGE LESS BLOODY TOWARDS THE END OF THE SHIFT. R) IJ 1 LUMEN INTACT, NO COMPLICATIONS. NO HEAMTOMAS AROUND FEMORAL ART LINE. HEPARINE GTT AT 1000 UNITS/HR, NEXT PTTHP AT 1800. DR ARAUJO, DR. Morris, DR URIBE, AND DR ANGELES AWARE OF ALL EVENTS THROUGHOUT THE FIT. FOLLOW UP: CONT TO MONITOR, WEAN DRIPS
[2017-03-26 05:06] LABS: ALBUMIN 2.5 gm/dL (3.5-5.0); CREATININE 1.7 mg/dL (0.6-1.3)
[2017-03-26 05:07] LABS: TOTAL BILIRUBIN 0.8 mg/dL (0.0-1.5); TOTAL PROTEIN 4.9 g/dL (6.0-8.4)
[2017-03-26 05:11] LABS: BASOPHIL # 0.1 K/uL (0.0-0.2); BASOPHIL % 0.3 %; EOSINOPHIL # 0.1 K/uL (0.0-0.5); EOSINOPHIL % 0.3 %; HEMOGLOBIN 9.2 g/dL (11.0-16.0); IMMATURE GRANULOCYTE # 0.2 K/uL (0.0-0.3); IMMATURE GRANULOCYTE % 1.3 %; LYMPHOCYTE % 11.6 %; MCHC 33.1 gm/dL (32.0-36.5); MCV 97.9 fl (83.0-98.0); MONOCYTE # 1.5 K/uL (0.0-1.0); MONOCYTE % 8.6 %; MPV 10.8 fl (9.4-12.4); NEUTROPHIL # (ANC) 13.5 K/uL (1.4-9.0); NEUTROPHIL % 77.9 %; NRBC % 0 /100WBC (0-0.00); PLATELET COUNT 119 K/uL (150-450); RDW-CV 13.1 % (11.9-14.6)
[2017-03-26 05:12] LABS: HEMATOCRIT 27.8 % (37.0-53.0); MCH 32.4 pg (27.0-34.0); RBC 2.84 M/uL (3.50-5.50); WBC 17.3 K/uL (4.0-11.0)
--- NOTE | 2017-03-26 05:32 | NUR ---
Significant Event: PATIENT IS ORIENTED X3, SLIGHTLY CONFUSED AT TIMES WITH EPISODES OF ANXIETY. BP'S ARE STABLE WITH SUPPORT OF LEVO AT 0.04 MCG/KG/MIN, PARAMETERS TO KEEP MAPS ABOVE 65. HIGHEST TEMP WAS 100.9. PT REFUSED CPAP OVERNIGHT, CURRENTLY ON BIPAP, FIO2 AT 40%, LUNG SOUNDS ARE CLEAR AND DIM. ACTIVE BOWEL SOUNDS, NO BM THIS SHIFT. LOW URINE PRODUCTION, DR. KING ORDERED ALBUMIN 1X DOSE. PERICARDIAL DRAIN EMPTIED 350ML, R. FEMORAL ART. LINE IN PLACE. R. ANKLE REMAINS IN RESTRAINT. FENT. GIVEN THREE TIMES FOR PAIN. Follow up: CONTINUE WITH CARES.
--- NOTE | 2017-03-26 19:25 | NUR ---
PATIENT ALERT AND ORIENTED. PATIENT REMAINS IN SINUS TACH. LEVO WAS DC'd THIS AM AT 1100. PATIENT TOLERATED WELL. AFEBRILE. THREADY PULSES, USE DOPPLER FOR ASSESSMENT. PATIENT ON 5L O2 VIA NC. PATIENT ON CARDIAC DIET. HAS EATEN LUNCH AND SUPPER, TOLERATED WELL. PERICARDIAL DRAIN HAD 300 OUT THIS SHIFT. R) FEMORAL ARTERY WAS REMOVED. PTT WAS 45 SO INCREASED HEPARIN GTT TO 1300 UNITS/HR. R) IJ IN TACT. PATIENT UP TO CHAIR THIS SHIFT.
[2017-03-27 04:19] LABS: ALBUMIN 2.2 gm/dL (3.5-5.0); CALCIUM 7.5 mg/dL (8.5-10.5); CREATININE 1.8 mg/dL (0.6-1.3); POTASSIUM 3.9 mMol/L (3.7-5.1)
[2017-03-27 04:25] LABS: ANION GAP 9.9 (10.0-19.0); TOTAL BILIRUBIN 0.6 mg/dL (0.0-1.5); TOTAL PROTEIN 4.9 g/dL (6.0-8.4)
[2017-03-27 04:28] LABS: BASOPHIL % 0.1 %; HEMATOCRIT 24.9 % (37.0-53.0); HEMOGLOBIN 8.4 g/dL (11.0-16.0); IMMATURE GRANULOCYTE # 0.1 K/uL (0.0-0.3); IMMATURE GRANULOCYTE % 1.2 %; LYMPHOCYTE # 0.7 K/uL (0.8-4.0); LYMPHOCYTE % 6.3 %; MCH 33.6 pg (27.0-34.0); MCHC 33.7 gm/dL (32.0-36.5); MCV 99.6 fl (83.0-98.0); MONOCYTE # 0.6 K/uL (0.0-1.0); MONOCYTE % 5.7 %; MPV 10.8 fl (9.4-12.4); NEUTROPHIL # (ANC) 9.8 K/uL (1.4-9.0); NEUTROPHIL % 86.7 %; NRBC % 0 /100WBC (0-0.00); PLATELET COUNT 117 K/uL (150-450); RDW-CV 13.1 % (11.9-14.6); WBC 11.3 K/uL (4.0-11.0)
--- NOTE | 2017-03-27 05:27 | NUR ---
Significant Event: PATIENT IS CURRENTLY ON BIPAP, 40% FI02. BREATHING IS LABORED WITH CRACKELS AND EXPIRATORY WHEEZES FOR LUNG SOUNDS. PATIENT IS POSTIVE FOR FLUIDS. BPS ARE STABLE AND HEART RATES REMAIN TACHY. PULSES ARE THREADY AND AUDIBLE BY DOPPLER. PATIENT REMAINS ON HEPARIN PROTOCOL. BOWEL SOUNDS ARE HYPOACTIVE BUT BM WAS HAD IN LATE EVENING OF 9-4-17. GRIMALDO WAS D/C THIS SHIFT, VOIDS ARE CURRENTLY URGENCY INCONTINENCE. PATIENT IS ORIENTED X3, RESTLESS AND IRRITABLE AT TIMES, ANXIETY MEDICATIONS GIVEN. IJ AND PIV IN PLACE. PERICARDIAL DRAIN REMAINS IN PLACE. Follow up: PTTHP AT 0800
--- NOTE | 2017-03-27 15:11 | NUR ---
Introduced self and role of care management to patient. He lives in [facility] with his . He states that normally he is able to do all his own ADL's. His does assist at this time. He plans on returnign home on discharge. We did discuss [facility] I explained that I had spoken to Keena at the [facility] and she was checking to see if they could even take a pericardial drain. He states that he would prefer to stay here but wants to make sure the [facility] is [facility] cover. Keena called back and states that they do not provide the services he needs so he will need to stay here. Patient updated. Will continue to follow.
--- NOTE | 2017-03-27 16:42 | NUR ---
Significant Event: First assessment patient was confused pulling on gown and BIPAP, was disoriented to time/place. Last two assessments patient was A&O X3 follows all commands. Pupils are equal and reactive. Equal strength throughout. SBP have been low 100's-150's, MAP's 80'-low 100's. Have has been in SR-ST with HR 80's-one teens. Patient wears BIPAP at night, started the day on 5L NC and currently on 2L NC with o2 sats mid to upper 90's. Lung sounds have been clear and diminished and diminished in the bases. Patient voids per urinal or walk to bathroom. Follow up:
--- NOTE | 2017-03-28 04:46 | NUR ---
Significant Event: patient is oriented x3 with equal and reactive pupils. forgetful at times. VS are stable. Lung sounds are clear and dim, currenlty on 3L NC. Bowel sounds are active. Urinary urgency incontinence is frequent for patient, he states this is new for him. Pulses are thready in all extremities. Patient is up walking in hallway but gets SOB on exertion. Follow up: possible transfer.
[2017-03-28 06:13] LABS: BASOPHIL % 0.1 %; EOSINOPHIL % 0.1 %; HEMATOCRIT 27.3 % (37.0-53.0); HEMOGLOBIN 8.9 g/dL (11.0-16.0); IMMATURE GRANULOCYTE # 0.1 K/uL (0.0-0.3); IMMATURE GRANULOCYTE % 0.9 %; LYMPHOCYTE # 1.4 K/uL (0.8-4.0); LYMPHOCYTE % 11.6 %; MCH 33.1 pg (27.0-34.0); MCHC 32.6 gm/dL (32.0-36.5); MCV 101.5 fl (83.0-98.0); MONOCYTE # 0.7 K/uL (0.0-1.0); MONOCYTE % 6.2 %; MPV 10.7 fl (9.4-12.4); NEUTROPHIL # (ANC) 9.7 K/uL (1.4-9.0); NEUTROPHIL % 81.1 %; NRBC % 0.2 /100WBC (0-0.00); RBC 2.69 M/uL (3.50-5.50); RDW-CV 13.3 % (11.9-14.6)
[2017-03-28 06:14] LABS: PLATELET COUNT 176 K/uL (150-450)
[2017-03-28 06:55] LABS: ALBUMIN 2.5 gm/dL (3.5-5.0); CALCIUM 7.7 mg/dL (8.5-10.5); CREATININE 1.7 mg/dL (0.6-1.3); TOTAL PROTEIN 5.3 g/dL (6.0-8.4)
[2017-03-28 06:59] LABS: TOTAL BILIRUBIN 0.4 mg/dL (0.0-1.5)
--- NOTE | 2017-03-28 17:39 | NUR ---
Significant Event: PATIENT IS A/OX3, INPLUSIVE AT TIMES DUE TO URGENCY. PATIENT ANXIOUS AT TIMES. SR WITH HRS 70S-90S, AFIBRILE, HYPERTENSIVE, WITH +3 EDEMA IN BLE. HEPRIN GTT DISCONTINUED, ELQUIS STARTED. LUNGS SOUNDS CLEAR AND DIM IN THE BASES, NON PRODUCTIVE COUGH AT TIMES. 3L NC TO KEEP SATS >90%, SOB AND FATIGUE WITH ACTIVITY. BOWEL SOUNDS ACTIVE, GOOD APPETITE, BM X2. VD PER CRISPIN AND URINAL, LASIX GIVEN. STAND BY ASSIST. MADE INTERMEDIATE STATUS. Follow up: CONTINUE.
[2017-03-29 06:15] LABS: BASOPHIL % 0.1 %; EOSINOPHIL # 0.1 K/uL (0.0-0.5); EOSINOPHIL % 1.2 %; HEMATOCRIT 25.9 % (37.0-53.0); HEMOGLOBIN 8.6 g/dL (11.0-16.0); IMMATURE GRANULOCYTE # 0.2 K/uL (0.0-0.3); IMMATURE GRANULOCYTE % 1.9 %; LYMPHOCYTE # 1.1 K/uL (0.8-4.0); LYMPHOCYTE % 13.5 %; MCH 32.8 pg (27.0-34.0); MCHC 33.2 gm/dL (32.0-36.5); MCV 98.9 fl (83.0-98.0); MONOCYTE # 0.6 K/uL (0.0-1.0); MONOCYTE % 7.1 %; MPV 10.2 fl (9.4-12.4); NEUTROPHIL # (ANC) 5.9 K/uL (1.4-9.0); NEUTROPHIL % 76.2 %; NRBC % 0.3 /100WBC (0-0.00); PLATELET COUNT 209 K/uL (150-450); RBC 2.62 M/uL (3.50-5.50); RDW-CV 13.3 % (11.9-14.6); WBC 7.8 K/uL (4.0-11.0)
[2017-03-29 06:40] LABS: ALBUMIN 2.4 gm/dL (3.5-5.0); CREATININE 1.6 mg/dL (0.6-1.3); POTASSIUM 3.6 mMol/L (3.7-5.1); TOTAL BILIRUBIN 0.4 mg/dL (0.0-1.5); TOTAL PROTEIN 5.5 g/dL (6.0-8.4)
[2017-03-29 06:42] LABS: ANION GAP 10.6 (10.0-19.0)
--- NOTE | 2017-03-29 07:43 | NUR ---
Pt having increased confusion and anxiety as shift went on. Seraquil ordered for Delerium per Dr. Calvo. Pt continues to have urinary urgency and incontinence. Sleeping well since administratin of medication.
[2017-03-29 09:38] LABS: PCO2 41 mmHg (35-45); PO2 81 mmHg (80-90)
[2017-03-29 09:39] LABS: BICARBONATE 25.4 mmol/L (18.0-23.0)
--- NOTE | 2017-03-29 09:39 | NUR ---
A-SCREENED D/T LOS HT: 70 IN. CBW (STANDING SCALE): 117.10 KG; ADMIT WT (BED SCALE): 112.3 KG BMI: 37.0 LABS: NA 147, K+ 3.6, GLU 112, BUN 28, ALL SOURCE INTELLIGENCE TECHNICIAN 1.6, ALB 2.4 MEDS: ELIQUID, DELTASONE, NUCYNTA, SUBLIMAZE, XANAX, NOVOLIN-R (MOD SS) DIET RX: CARDIAC. PO INTAKE IMPROVED TO 50-100% OVER THE LAST SEVERAL DAYS. APPETITE REPORTED GOOD. EST NUTR NEEDS:
--- NOTE | 2017-03-29 09:58 | NUR ---
A-SCREENED D/T LOS HT: 70 IN. CBW (STANDING SCALE): 117.10 KG; ADMIT WT (112.3 KG). BMI: 37.0. IBW: 75 KG LABS: NA 147, K+ 3.6, GLU 112, BUN 28, DIE CUTTING MACHINE OPERATOR 1.6, ALB 2.4 MEDS: ELIQUIS, DELATSONE, NUCYNTA, SUBLIMAZE, XANAX, NOVOLIN-R (MOD SS) DIET RX: CARDAIC. PO INTAKE HAS BEEN 50-100% OVER THE LAST SEVERAL DAYS EST NUTR NEEDS: [id number] KCALS (15-20 KCLA/KG) 112-150 GM PROTEIN (1.5-2.0 GM/KG IBW) 1 ML FLUID/KCAL D-NOT AT NUTRITION RISK; NO NUTRITION DX IDENTIFIED I-CONTINUE W/CURRENT DIET RX M/E-F/U PO INTAKE, WT, AND POC IN 4-6 DAYS
--- NOTE | 2017-03-29 16:51 | NUR ---
PATIENT ALERT/ORIENTED X3. FOLLOWS COMMANDS. FORGETFUL. THIS AM WAS NOT FOLLOWING COMMANDS AND VERY DROWSY. DR NOTIFIED. VSS. SBP'S 140-170'S. HR 60-70'S. 2-3L OF O2. URGENCY, USES URINAL. GENERALIZED BRUISING TO SKIN. GAUZE/TEGADERM TO CHEST. R MIDLINE/R FOREARM SALINE LOCKED. 1-2A GB. Q4H ACCU CHECKS. NO COVERAGE. WORKED WITH THERAPY. COOPERATIVE WITH CARES.
--- NOTE | 2017-03-30 00:08 | NUR ---
PATIENT ARRIVED TO UNIT AT 2039 FROM ICU. BROUGHT UP BY RN AND OPENSTACK DEVELOPER. REPORT WAS GIVEN OVER PHONE. VITAL SIGNS STABLE. DENIES PAIN.
--- NOTE | 2017-03-30 02:12 | NUR ---
PT REFUSED TO WEAR HIS CPAP @2201 TONIGHT AND IS CURRENTLY ON NC.
--- NOTE | 2017-03-30 04:51 | NUR ---
Significant Event: PATIENT ARRIVED TO FLOOR AT 2039 FROM THE ICU. A/O x3, NO N/T. ONE ASSIST, GAITBELT. R) FOREARM IV, SLUGISH, SALINE LOCKED. R) MIDLINE, SALINE LOCKED, NO COMPLICATIONS. 1+ PULSES, 1-2+ EDEMA. ON 1L O2 VIA NC. CARDIAC DIET. ONE MODERATE BM. SCATTERED BRUISING AND ECCHYMOTIC AREAS ON BODY. PATCH OF DRY SKIN ON R) LEG, OPEN TO AIR. GAUZE ON CHEST WHERE TUBE WAS PREVIOUSLY PLACED, CDI. ACCU CHECK Q4HR, NO COVERAGE DURING SHIFT. Follow up:
[2017-03-30 07:22] LABS: BASOPHIL % 0.4 %; EOSINOPHIL # 0.3 K/uL (0.0-0.5); EOSINOPHIL % 4.4 %; HEMATOCRIT 28.5 % (37.0-53.0); HEMOGLOBIN 9.4 g/dL (11.0-16.0); IMMATURE GRANULOCYTE # 0.2 K/uL (0.0-0.3); IMMATURE GRANULOCYTE % 2.4 %; LYMPHOCYTE # 1.7 K/uL (0.8-4.0); LYMPHOCYTE % 21.9 %; MCH 33.1 pg (27.0-34.0); MCV 100.4 fl (83.0-98.0); MONOCYTE # 0.6 K/uL (0.0-1.0); MONOCYTE % 8.5 %; MPV 10.1 fl (9.4-12.4); NEUTROPHIL # (ANC) 4.7 K/uL (1.4-9.0); NEUTROPHIL % 62.4 %; NRBC % 0.8 /100WBC (0-0.00); PLATELET COUNT 241 K/uL (150-450); RBC 2.84 M/uL (3.50-5.50); RDW-CV 13.2 % (11.9-14.6); WBC 7.6 K/uL (4.0-11.0)
[2017-03-30 07:52] LABS: ALBUMIN 2.4 gm/dL (3.5-5.0); ANION GAP 10.7 (10.0-19.0); CALCIUM 8.6 mg/dL (8.5-10.5); CREATININE 1.6 mg/dL (0.6-1.3); POTASSIUM 3.7 mMol/L (3.7-5.1); TOTAL PROTEIN 5.6 g/dL (6.0-8.4)
[2017-03-30 07:53] LABS: TOTAL BILIRUBIN 0.5 mg/dL (0.0-1.5)
--- NOTE | 2017-03-30 12:46 | NUR ---
Social visit with patient today. We discussed discharge plans. He is still planning to return home with his . He denies any needs at this time. Will continue to follow.
--- NOTE | 2017-03-30 19:22 | NUR ---
Significant Event: Alert and oriented X 3. O2 at 1L nasal cannula. SBP 170's and 180's. HR 80's and 90's. Edema to legs and feet +2. Uses urinal. Up with 1 assist gait belt and walker. Cardiac diet. Accu checks Q4. Denies pain. Right midline powerglide flushes well with good blood return. Dressing to the chest to chest tube site, gauze and tegaderm, clean dry and intact. Pleasant and cooperative with cares. Follow up:
[2017-03-31 03:53] LABS: ALBUMIN 2.6 gm/dL (3.5-5.0); ANION GAP 9.2 (10.0-19.0); CALCIUM 8.5 mg/dL (8.5-10.5); CREATININE 1.6 mg/dL (0.6-1.3); MAGNESIUM 1.8 mg/dL (1.8-2.6); PHOSPHORUS 3.1 mg/dL (2.5-4.9); POTASSIUM 3.2 mMol/L (3.7-5.1)
--- NOTE | 2017-03-31 04:31 | NUR ---
A&Ox3. Denies any pain this shift. Chest tube dressing removed. Up with stand by assist and use of gait belt. Voids per urinal 2,375ml clear, yellow urine. Blood pressure up into 160s at times other VSS. Wears 1-2L @ NOC in replacement of CPAP. Lungs clear/dim. 2+ edema in legs. D/C home on Sunday.
--- NOTE | 2017-03-31 19:10 | NUR ---
Significant Event: Patient alert and orienated x3. Vital signs stable. Accu checks ACHS. Cardiac diet. Patient has edema to lower extremities. IV lasix administered today. Ambulates in peters and shower today. PO potassium given. Follow up: Possible discharge Sunday.
[2017-04-01 03:36] LABS: ALBUMIN 2.7 gm/dL (3.5-5.0); ANION GAP 8.7 (10.0-19.0); CALCIUM 8.7 mg/dL (8.5-10.5); CREATININE 1.7 mg/dL (0.6-1.3); PHOSPHORUS 2.6 mg/dL (2.5-4.9); POTASSIUM 3.7 mMol/L (3.7-5.1)
--- NOTE | 2017-04-01 04:34 | NUR ---
A&Ox3. Denies pain. Up with stand by assist and ambulates in halls. Voids per urinal adequate output. Overnight pulse ox study in progress. VSS on R/A. 1-2+ edema in legs but improving. Possible D/C on Sunday.
--- NOTE | 2017-04-01 16:12 | NUR ---
Significant Event: A/O X 3. AFEBRILE. HR SR IN 70'S. SATS 93% ROOM AIR. SBP 151-166. EDEMA TO LOWER EXT. K+3.7, KCL PO GIVEN. INCREASED COZAAR MED. GIVEN PO LASIX. Follow up: PLAN DISM. TOMORROW. PUT D/C PAPERS ON CHART.
--- NOTE | 2017-04-02 04:04 | NUR ---
A&OX3. CALM/COOPERATIVE WITH CARES. STAND BY ASSIST WITH AMBULATION. VOIDS PER URINAL ADEQUATE OUTPUT. C/O OF SOME PAIN IN BACK. PRN TYLENOL GIVEN WTIH HS MEDICATIONS. 151 HS ACCUCHECK 2 UNITS OF COVERAGE RECEIVED. 2+ EDEMA IN BILATERAL FEET. R) FOREARM AND R) MIDLINE IV SL. BRUISING TO NECK AND BILATERAL UPPER EXTREMITIES PRESENT. D/C TO HOME IN AM.
[2017-04-02 05:33] LABS: ALBUMIN 2.7 gm/dL (3.5-5.0); ANION GAP 10.7 (10.0-19.0); CALCIUM 8.5 mg/dL (8.5-10.5); CREATININE 1.5 mg/dL (0.6-1.3); PHOSPHORUS 2.4 mg/dL (2.5-4.9); POTASSIUM 3.7 mMol/L (3.7-5.1)
[2017-04-02] MEDS ORDERED: AUGMENTIN 875-1 EACH PO (12:09)
[2017-04-02] MEDS ORDERED: ELIQUIS5 MG PO ×2 (12:15→12:16)
[2017-04-02] MEDS ORDERED: LASIX20 MG PO (12:16)
[2017-04-02] MEDS ORDERED: COZAAR100 MG PO (12:18)
[2017-04-02] MEDS ORDERED: MAG-OX-400(241400 MG PO (12:22)
--- NOTE | 2017-04-02 12:25 | NUR ---
Social visit with patient today. He plans on being discharged today. He has made arrangements for [facility] and [facility]vin to pick him at 1500. He denies any needs at this time.
[2017-04-02] MEDS ORDERED: ALBUTEROL2.5 MG/3 M NOSE (12:31)
[2017-04-02] MEDS ORDERED: DULERA 200 MCG/51 EA INH (12:32)
[2017-04-02] MEDS ORDERED: TYLENOL325 MG PO (12:38)
[2017-04-02] MEDS ORDERED: CHLORASEPTIC SP1 BOT PO (12:41)
[2017-04-02] MEDS ORDERED: ALIGN4 MG PO (12:46)
== END 2017-04-02 15:30 | disposition disaster alternative care site (69) | DRG 175 ==
LOC: GICU 04:16 → GPCU 04:16 → GICU 03-28 15:45 → GPCU 03-29 20:41
PROVIDERS: Internal Medicine; Internal Medicine Cardiovascular Disease; Internal Medicine Interventional Cardiology; ADMIT Internal Medicine
DX: I26.09 Other pulmonary embolism with acute cor pulmonale (principal); A41.9 Sepsis, unspecified organism; J96.01 Acute respiratory failure with hypoxia; I31.4 Cardiac tamponade; R65.20 Severe sepsis without septic shock; J69.0 Pneumonitis due to inhalation of food and vomit; G93.49 Other encephalopathy; I50.31 Acute diastolic (congestive) heart failure; N17.9 Acute kidney failure, unspecified; J91.8 Pleural effusion in other conditions classified elsewhere; I13.0 Hypertensive heart and chronic kidney disease with heart failure and stage 1 through stage 4 chronic kidney disease, or unspecified chronic kidney disease; D62 Acute posthemorrhagic anemia; J44.1 Chronic obstructive pulmonary disease with (acute) exacerbation; J44.0 Chronic obstructive pulmonary disease with (acute) lower respiratory infection; I82.431 Acute embolism and thrombosis of right popliteal vein; E87.4 Mixed disorder of acid-base balance; N18.3 Chronic kidney disease, stage 3 (moderate); E16.0 Drug-induced hypoglycemia without coma; T38.0X5A Adverse effect of glucocorticoids and synthetic analogues, initial encounter; E87.6 Hypokalemia; E83.42 Hypomagnesemia; Z96.642 Presence of left artificial hip joint; Z79.82 Long term (current) use of aspirin; L40.9 Psoriasis, unspecified; Z66 Do not resuscitate; E66.9 Obesity, unspecified; Z68.35 Body mass index [BMI] 35.0-35.9, adult; T43.595A Adverse effect of other antipsychotics and neuroleptics, initial encounter
CPT/HCPCS: A9270; A9539; A9540; C1729; C1751; C1894; C9113; J1630; J1644; J1720; J1940; J2060; J2250; J2370; J2543; J2704; J2997; J3010; J7030; J7040; J7050; J7060; J7512; P9047